=== PATIENT | male | born 1955 | race Caucasian/White ===

== ENCOUNTER 2018-05-30 21:39 | Inpatient (IN) | payer MEDICAID, OTHER ==
[~2018-05-30] VITALS: Ht 170.2 cm; Wt 68.1 kg
--- NOTE | 2018-05-30 21:50 | NUR ---
PT GONZALO FROM [facility] C/O HYPOGLYCEMIA. CURRENT BS 176. PT DENIES SOB, CHEST PAIN, ABDOMINAL PAIN, HEADACHE, DIZZINESS. PT O2 SAT ROOM AIR 85%, PLACED ON 4L O2 NC O2 NOW 94%. PT STATES HE IS NORMALLY ON 2L AT HOME. PT AAOX4. RESPIRATIONS EVEN AND UNLABORED. SKIN INTACT. NO ACUTE DISTRESS NOTED. PLACED ON CONTINUOUS DIP GUIDER STOVES, WILL CONTINUE TO MONITOR
--- NOTE | 2018-05-30 22:25 | NUR ---
MD AT BEDSIDE FOR EVALUATION
--- NOTE | 2018-05-30 22:45 | NUR ---
URINE COLLECTED AND SENT TO LAB
[2018-05-30 22:51] LABS: BASOPHILS % (AUTO) 0.2 % (0.0-2.0); HEMATOCRIT 31 % (39-51); HEMOGLOBIN 10.1 g/dL (13.5-17.5); LYMPHOCYTES # (AUTO) 0.6 /CMM (0.8-4.8); LYMPHOCYTES % (AUTO) 2.5 % (20.0-44.0); MEAN CORPUSCULAR HGB CONC 32 g/dl (31.0-36.0); MEAN CORPUSCULAR VOLUME 89 fL (80-96); MONOCYTES # (AUTO) 1.5 /CMM (0.1-1.30); MONOCYTES % (AUTO) 6.4 % (2.0-12.0); NEUTROPHILS % (AUTO) 90.9 % (43.0-81.0); PLATELET COUNT (AUTO) 405 /CMM (150-450); WHITE BLOOD COUNT (AUTO) 23.2 K/uL (4.3-11.0)
[2018-05-30 22:54] LABS: APPEARANCE,URINE Clear (CLEAR); BILIRUBIN,URINE Negative (NEGATIVE); BLOOD, URINE Negative Ery/uL (NEGATIVE); COLOR,URINE Yellow (YELLOW); KETONES,URINE Negative (NEGATIVE); LEUKOCYTE ESTERASE ,URINE Negative (NEGATIVE); NITRITE, URINE Negative (NEGATIVE); PH,URINE 5.5 (5.0-8.0); PROTEIN,URINE 30 mg/dl (NEGATIVE); UGLUCOSE Negative (NEGATIVE)
[2018-05-30 22:56] LABS: CALCIUM, SERUM 7.9 mg/dL (8.5-10.1); CREATININE 1.7 mg/dL (0.6-1.3); POTASSIUM 4.6 mmol/L (3.5-5.1)
[2018-05-30 23:21] LABS: BACTERIA,URINE Few /HPF (None Seen); SQUAMOUS EPITHELIAL CELL,UR Rare /HPF (None Seen); WBC,URINE 0-2 /HPF (0-3)
[2018-05-30] MEDS ORDERED: PIPERACILLIN /TAZOBACTAM 2.25 G in IV D5W 50 ML IV ONE (23:30)
--- NOTE | 2018-05-30 23:30 | NUR ---
FLOOR ASSOCIATE AT BEDSIDE FOR BLOOD CULTURES
[2018-05-30 23:37] LABS: ALANINE AMINOTRANSFERASE 26 U/L (12-78); ALBUMIN 2.3 g/dL (3.4-5.0); ALKALINE PHOSPHATASE 103 U/L (46-116); ASPARTATE AMINOTRANSFERASE 22 U/L (15-37); BILIRUBIN,DIRECT 0.1 mg/dL (0.0-0.2); BILIRUBIN,TOTAL 0.2 mg/dL (0.2-1.0)
[2018-05-30] MEDS ORDERED: PIPERACILLIN /TAZOBACTAM 2.25 G VIAL IV ONE (23:43)
[2018-05-31] VITALS (7 sets, daily range): BP systolic 111–148; BP diastolic 53–71
[2018-05-31] MEDS ORDERED: VANCOMYCIN 1 GM in IV D5W 250 ML IV ONE ×2
[2018-05-31] MEDS ORDERED: PRED5DRO24 LEFTEYE (00:09)
[2018-05-31] MEDS ORDERED: ASCO500T9 PO (00:09)
[2018-05-31] MEDS ORDERED: LISI-603 PO (00:09)
[2018-05-31] MEDS ORDERED: OLOD4MIS2 IH (00:09)
[2018-05-31] MEDS ORDERED: ACET325T53 PO (00:09)
[2018-05-31] MEDS ORDERED: INSU100V27 SQ (00:09)
[2018-05-31] MEDS ORDERED: AMYL1CAP54 PO (00:09)
[2018-05-31] MEDS ORDERED: INSU100V37 SQ (00:09)
[2018-05-31] MEDS ORDERED: RANI150C4 PO (00:09)
[2018-05-31] MEDS ORDERED: CHOL20004 PO (00:09)
[2018-05-31] MEDS ORDERED: MULT1TAB73 PO (00:09)
[2018-05-31] MEDS ORDERED: GUAI100S9 PO (00:09)
[2018-05-31] MEDS ORDERED: FERR325T23 PO (00:09)
[2018-05-31] MEDS ORDERED: ASPI-1169 PO (00:09)
[2018-05-31] MEDS ORDERED: SERT25TA PO (00:09)
[2018-05-31] MEDS ORDERED: FINA5TAB11 PO (00:09)
[2018-05-31] MEDS ORDERED: IPRA3AMP23 IH (00:09)
[2018-05-31] MEDS ORDERED: CARV25TA2 PO (00:09)
[2018-05-31] MEDS ORDERED: CHLO25TA2 PO (00:09)
[2018-05-31] MEDS ORDERED: ATOR80TA PO (00:09)
[2018-05-31] MEDS ORDERED: [UNRECOGNIZED DRUG - CODE] BC (00:09)
[2018-05-31] MEDS ORDERED: TIOT18CA3 INH (00:09)
[2018-05-31] MEDS ORDERED: NIFE60TA69 PO (00:09)
[2018-05-31] MEDS ORDERED: VANCOMYCIN 1 GM VIAL ONE (00:13)
--- NOTE | 2018-05-31 00:58 | NUR ---
GAVE REPORT TO CATHRYN SALCEDO FOR LARISSA
[2018-05-31] MEDS ORDERED: Z GUARD REMEDY 2 OZ OINT TP PRN (01:30)
[2018-05-31] MEDS ORDERED: ONDANSETRON HCL/PF 4 MG/2 ML VIAL IVP PRN (01:30)
[2018-05-31] MEDS ORDERED: MAG HYDROX/AL HYDROX/SIMETH 30 ML UDC PO PRN (01:30)
[2018-05-31] MEDS ORDERED: ZOLPIDEM TARTRATE 5 MG TABLET PO PRN (01:30)
[2018-05-31] MEDS ORDERED: MAGNESIUM HYDROXIDE 30 ML UDC PO PRN (01:30)
[2018-05-31] MEDS ORDERED: HYDROCODONE/APAP 5/325MG 1 EACH TABLET PO PRN (01:30)
[2018-05-31] MEDS ORDERED: ACETAMINOPHEN 325 MG TABLET PO PRN ×2 (01:30)
--- NOTE | 2018-05-31 02:00 | NUR ---
SITE PROJECT MANAGERSHOP WELDER NOTES RECEIVED FROM ER PER [facility] VIA ACLS PROTOCOL THIS 63 Y.O. MALE FOR [facility],WITH CHIEF COMPLAINTS OF LOW BLOOD SUGAR 45, IMPROVED UPON ARRIVAL TO ER VIA AMBULANCE,WAS GIVEN D10 IV BY PARAMEDICS,A/O X3,NOTED EPISODE OF PRODUCTIVE COUGH.SALINE LOCK LEFT AC INTACT AND PATENT.NOTED FADING BRUISES VIA ABDOMEN FROM SHOTS/INSULIN.SCAR ON HIS BACK AND SKIN DRYNESS ON HIS LEFT HAND.DENIES PAIN AT THE MOMENT.DIMINISHED BREATH SOUND ON BOTH LOWER LUNG FIELD.FALL PRECAUTION OBSERVED.BED ON LOWEST POSITION AND LOCK.CALL LIGHT IN REACH,WILL CONTINUE TO MONITOR STATUS.
--- NOTE | 2018-05-31 02:05 | NUR ---
TRANSFERRED PT PER ACLS PROTOCOL
[2018-05-31] MEDS: GUAIFENESIN 300 MG/15 ML UDC PO PRN ×2 (02:53→10:30)
--- NOTE | 2018-05-31 02:53 | NUR ---
SLAB INSPECTOR NOTES KEEPS ON COUGHING,ROBITUSSIN 100MG/5ML GIVEN
--- NOTE | 2018-05-31 06:07 | NUR ---
YOUTH SERVICES SPECIALIST NOTES SR 69 ON TELE MONITOR.COUGH EPISODE IMPROVED WITH ROBITUSSIN,O2 IN USED AT 4L,O3 SAT 94%.CALL LIGHT IN REACH.NEEDS ATTENDED.WILL ENDORSE TO DAY NURSE FOR LARISSA.
--- NOTE | 2018-05-31 07:42 | NUR ---
SENIOR CONSTRUCTION PROJECT MANAGER OPENING NOTES RECEIVED PT LAYING IN BED WITH HOB ELEVATED. PT IS A/O X4, AFEBRILE. RESPIRATIONS ARE EVEN AND UNLABORED, NOT IN ANY ACUTE DISTRESS NOTED. NO C/O PAIN, SOB, N/V AT THIS TIME. IV SITE TO LAC INTACT, NO INFILTRATION NOTED. DRESSING KEPT CLEAN AND DRY. SAFETY MEASURES ARE IN PLACE. INSTRUCTED PT TO USE CALL LIGHT WHEN ASSISTANCE IS NEEDED, CALL LIGHT IS LEFT WITHIN REACH. WILL MONITOR THROUGHOUT SHIFT FOR CONTINUITY OF CARE.
[2018-05-31] MEDS: FINASTERIDE (5 MG) 5 MG TABLET PO SCH (08:27)
[2018-05-31] MEDS: FERROUS SULFATE (325 MG) 325 MG/TAB TABLET PO SCH (08:27)
[2018-05-31] MEDS: LISINOPRIL (20MG) 20 MG TABLET PO SCH ×2 (08:28→17:31)
[2018-05-31] MEDS: ASPIRIN 81 MG TAB.CHEW PO SCH (08:28)
[2018-05-31] MEDS: ASCORBIC ACID 500 MG TABLET PO SCH (08:28)
[2018-05-31] MEDS: NIFEdipine XL 60 MG TAB PO SCH (08:28)
[2018-05-31] MEDS: CARVEDILOL 12.5 MG TABLET PO SCH ×2 (08:29→17:20)
--- NOTE | 2018-05-31 10:15 | NUR ---
PRECISION FARMING SPECIALIST NOTES-- PT SEEN AND EXAMINED BY DR. HILL.
[2018-05-31] MEDS ORDERED: CEFEPIME 1 GM in IV NS 0.9% 50 ML IV SCH (10:30)
[2018-05-31] MEDS ORDERED: FEE PK DOSING 1 MIN EA MC ONE (10:48)
[2018-05-31] MEDS: CEFEPIME 2 GM in IV D5W 100 ML IV SCH ×2 (11:47→20:31)
--- NOTE | 2018-05-31 13:00 | NUR ---
WINDSHIELD TECHNICIAN NOTES-- PT SEEN AND EXAMINED BY DR. HARRIS.
[2018-05-31] MEDS ORDERED: DEXTROSE 50%-WATER 50 ML DISP.SYRIN IV PRN (16:30)
--- NOTE | 2018-05-31 16:51 | NUR ---
Patient is alert,resides at [facility] [phone].He requires assistance with adl's.He plan to return to SNF once discharge. Addendum: 05/31/18 at 1651 by CARSON CASTRO RN Amended: Links added.
[2018-05-31] MEDS: VANCOMYCIN 1 GM in IV D5W 250 ML IV SCH (17:20)
[2018-05-31] MEDS: BLOOD SUGAR DIAGNOSTIC 1 EACH STRIP IN SCH ×2 (17:21→21:56)
[2018-05-31] MEDS: INSULIN REGULAR, HUMAN 100 UNIT/ML 3 ML VIAL SQ PRN ×2 (17:28→22:08)
--- NOTE | 2018-05-31 17:30 | NUR ---
MS RN NOTES-- BLOOD SUGAR 260, 6 UNITS GIVEN. NO S/SX OF HYPERGLYCEMIA NOTED. WILL CONTINUE TO MONITOR.
--- NOTE | 2018-05-31 18:40 | NUR ---
MS RN CLOSING NOTES ALL DUE MEDS GIVEN, NEEDS MET AND RENDERED. PT IS A/O X3, AFEBRILE. RESPIRATIONS ARE EVEN AND UNLABORED, NOT IN ANY ACUTE DISTRESS NOTED. PT DENIES ANY PAIN, SOB, N/V AT THIS TIME. PT NOTED WITH COUGH DURING SHIFT AND ROBITUSSIN GIVEN, NOTED TO BE EFFECTIVE. IV ACCESS INTACT, NO INFILTRATION NOTED. DRESSING KEPT CLEAN AND DRY. SAFETY MEASURES ARE IN PLACE. REMINDED PT TO USE CALL LIGHT WHEN ASSISTANCE IS NEEDED, CALL LIGHT IS LEFT WITHIN REACH. WILL ENDORSE TO NEXT SHIFT FOR CONTINUITY OF CARE.
[2018-05-31] MEDS: IPRATROPIUM NEB FS 0.5 MG/2.5 ML AMPUL.NEB NEB SCH (19:30)
--- NOTE | 2018-05-31 19:45 | NUR ---
MS RN NOTES RECEIVED OOB, HE'S IN THE RESTROOM,SALINE LOCK LEFT AC INTACT AND PATENT.COUGH IMPROVED,AMBULATORY.CALL LIGHT IN REACH.WILL CONTINUE TO MONITOR STATUS.
--- NOTE | 2018-05-31 20:31 | NUR ---
MS RN NOTES DUE DARLYN CHEW
[2018-05-31] MEDS: ATORVASTATIN 40 MG TABLET PO SCH (21:57)
--- NOTE | 2018-05-31 22:00 | NUR ---
MS RN NOTES URINE FOR ANALYSIS COLLECTED,SENT TO LAB
--- NOTE | 2018-05-31 22:15 | NUR ---
MS RN NOTES ACCU-CHECK BLOOD SUGAR CHECK 159,COVERED WITH HUMULIN R 2 UNITS PER SLIDING SCALE.
--- NOTE | 2018-05-31 22:30 | NUR ---
MS RN NOTES SNACKS PROVIDED AT BEDSIDE
--- NOTE | 2018-06-01 01:00 | NUR ---
MS RN NOTES PATIENT SAYS HE ALREADY HAD LOOSE BOWEL MOVEMENT 3X.CHECKED IF HES GETTING ANY STOOL SOFTENER BUT HES NOT.WILL CHECK AND COLLECT IF HE POO THE 4TH TIME.FOREIGN SERVICE TEACHER BIN PLACE ON TOILET BOWL FOR BOWEL COLLECTION.PATIENT MADE AWARE.
[2018-06-01] MEDS: GUAIFENESIN 300 MG/15 ML UDC PO PRN ×2 (01:03→08:25)
[2018-06-01] MEDS: IPRATROPIUM NEB FS 0.5 MG/2.5 ML AMPUL.NEB NEB SCH ×4 (01:49→20:05)
[2018-06-01] MEDS: BLOOD SUGAR DIAGNOSTIC 1 EACH STRIP IN SCH ×4 (06:03→22:14)
--- NOTE | 2018-06-01 06:21 | NUR ---
MS RN NOTES IN BED SLEEPING,AROUSABLE TO VERBAL STIMULI,LEFT EYE BLIND,SALINE IN PLACE WITH BLOOD STAIN ON SITE.BLOOD SUGAR CHECK 200MG/DL,WILL COVER WITH HUMULIN R 3 UNITS BEFORE BREAKFAST.AMBULATES WITH ASSIST.WILL CONTINUE TO MONITOR STATUS.
[2018-06-01 06:30] LABS: APPEARANCE,URINE CLEAR (CLEAR); BILIRUBIN,URINE NEGATIVE (NEGATIVE); BLOOD, URINE NEGATIVE Ery/uL (NEGATIVE); COLOR,URINE YELLOW (YELLOW); KETONES,URINE NEGATIVE (NEGATIVE); LEUKOCYTE ESTERASE ,URINE NEGATIVE (NEGATIVE); NITRITE, URINE NEGATIVE (NEGATIVE); PH,URINE 6.5 (5.0-8.0); PROTEIN,URINE TRACE mg/dl (NEGATIVE); UGLUCOSE NEGATIVE (NEGATIVE); UROBILINOGEN,URINE 0.2 EU/dL (0.2)
[2018-06-01 07:14] LABS: RBC,URINE 0-2 /HPF (0-2); WBC,URINE NONE SEEN /HPF (0-3)
[2018-06-01 07:15] LABS: BACTERIA,URINE None seen /HPF (None Seen); EOSINOPHIL,URINE None Seen; SQUAMOUS EPITHELIAL CELL,UR Few /HPF (None Seen)
--- NOTE | 2018-06-01 07:36 | NUR ---
MS RN CLOSING NOTES RECEIVED PT LAYING IN BED. PT IS A/O X2-3, AFEBRILE. RESPIRATIONS ARE EVEN AND UNLABORED, NOT IN ANY ACUTE DISTRESS NOTED. PT DENIES ANY PAIN, SOB, N/V AT THIS TIME. IV ACCESS INTACT, NO INFILTRATION NOTED. DRESSING KEPT CLEAN AND DRY. SAFETY MEASURES ARE IN PLACE. REMINDED PT TO USE CALL LIGHT WHEN ASSISTANCE IS NEEDED, CALL LIGHT IS LEFT WITHIN REACH. WILL MONITOR THROUGHOUT SHIFT FOR CONTINUITY OF CARE.
[2018-06-01 07:50] LABS: BASOPHILS # (AUTO) 0.1 /CMM (0.0-0.2); BASOPHILS % (AUTO) 0.3 % (0.0-2.0); HEMATOCRIT 34 % (39-51); HEMOGLOBIN 11.2 g/dL (13.5-17.5); LYMPHOCYTES % (AUTO) 5.5 % (20.0-44.0); MEAN CORPUSCULAR HGB CONC 33 g/dl (31.0-36.0); MEAN CORPUSCULAR VOLUME 89 fL (80-96); MONOCYTES # (AUTO) 1.6 /CMM (0.1-1.30); MONOCYTES % (AUTO) 8.7 % (2.0-12.0); NEUTROPHILS # (AUTO) 15.6 /CMM (1.8-8.9); NEUTROPHILS % (AUTO) 84.5 % (43.0-81.0); PLATELET COUNT (AUTO) 397 /CMM (150-450); WHITE BLOOD COUNT (AUTO) 18.4 K/uL (4.3-11.0)
[2018-06-01 08:00] VITALS: BP_SYST 130; BP_DIAS 57; BP_DIAS 75
[2018-06-01 08:13] LABS: ALBUMIN 2.2 g/dL (3.4-5.0); BILIRUBIN,TOTAL 0.4 mg/dL (0.2-1.0); CALCIUM, SERUM 8.1 mg/dL (8.5-10.1); CREATININE 1.6 mg/dL (0.6-1.3); MAGNESIUM 2.8 mg/dL (1.8-2.4); PHOSPHORUS 3.1 mg/dL (2.5-4.9); POTASSIUM 4.7 mmol/L (3.5-5.1); TOTAL PROTEIN, SERUM 6.9 g/dL (6.4-8.2)
[2018-06-01 08:17] LABS: THYROID STIMULATING HORMONE 0.62 uIU/mL (0.358-3.74)
[2018-06-01] MEDS: FINASTERIDE (5 MG) 5 MG TABLET PO SCH (08:23)
[2018-06-01] MEDS: CARVEDILOL 12.5 MG TABLET PO SCH ×2 (08:24→17:02)
[2018-06-01] MEDS: NIFEdipine XL 60 MG TAB PO SCH (08:24)
[2018-06-01] MEDS: FERROUS SULFATE (325 MG) 325 MG/TAB TABLET PO SCH (08:24)
[2018-06-01] MEDS: ASCORBIC ACID 500 MG TABLET PO SCH (08:25)
[2018-06-01] MEDS: LISINOPRIL (20MG) 20 MG TABLET PO SCH ×2 (08:25→17:02)
[2018-06-01] MEDS: CEFEPIME 2 GM in IV D5W 100 ML IV SCH ×2 (08:26→20:34)
[2018-06-01] MEDS: INSULIN REGULAR, HUMAN 100 UNIT/ML 3 ML VIAL SQ PRN ×4 (08:34→22:17)
--- NOTE | 2018-06-01 08:50 | NUR ---
MS RN NOTES-- PT SEEN AND EXAMINED BY DR. HILL.
[2018-06-01] MEDS: ASPIRIN 81 MG TAB.CHEW PO SCH (09:24)
--- NOTE | 2018-06-01 10:40 | NUR ---
MS RN NOTES-- PT SEEN AND EXAMINED BY DR. LINN.
[2018-06-01] MEDS: VANCOMYCIN 1 GM in IV D5W 250 ML IV SCH (11:28)
[2018-06-01 15:52] VITALS: BP 132/63
--- NOTE | 2018-06-01 19:16 | NUR ---
MS RN CLOSING NOTES ALL DUE MEDS GIVEN, NEEDS MET AND RENDERED. PT IS A/O X2-3, AFEBRILE. RESPIRATIONS ARE EVEN AND UNLABORED, NOT IN ANY ACUTE DISTRESS NOTED. PT DENIES ANY PAIN, SOB, N/V AT THIS TIME. IV ACCESS INTACT, NO INFILTRATION NOTED. DRESSING KEPT CLEAN AND DRY. SAFETY MEASURES ARE IN PLACE. REMINDED PT TO USE CALL LIGHT WHEN ASSISTANCE IS NEEDED, CALL LIGHT IS LEFT WITHIN REACH. ENDORSED TO NEXT SHIFT FOR CONTINUITY OF CARE.
--- NOTE | 2018-06-01 19:35 | NUR ---
MS RN NOTES RECEIVED RESTING COMFORTABLY ON BED,NO SOB,SALINE LOCK LEFT AC WITH BLOOD STAIN NOTED BUT STILL PATENT.O2 IN USED ON AND OFF AT 4LITERS.BED ON LOWEST POSITION AND LOCKED.CALL LIGHT IN REACH,NEEDS ANTICIPATED.
[2018-06-01 20:00] VITALS: BP 113/54
--- NOTE | 2018-06-01 22:00 | NUR ---
MS RN NOTES ACCU-CHECK BLOOD SUGAR CHECK 226,GIVEN 4 UNITS HUMULIN R PER MILD SLIDING SCALE.
[2018-06-01] MEDS: ATORVASTATIN 40 MG TABLET PO SCH (22:14)
[2018-06-02] MEDS: IPRATROPIUM NEB FS 0.5 MG/2.5 ML AMPUL.NEB NEB SCH ×4 (01:36→20:14)
--- NOTE | 2018-06-02 04:03 | NUR ---
MS RN NOTES COUGHING,ROBITUSSIN 100MG/5ML PO GIVEN ORDERED.
[2018-06-02] MEDS: GUAIFENESIN 300 MG/15 ML UDC PO PRN (04:04)
[2018-06-02] MEDS: BLOOD SUGAR DIAGNOSTIC 1 EACH STRIP IN SCH ×4 (06:10→21:44)
[2018-06-02] MEDS: INSULIN REGULAR, HUMAN 100 UNIT/ML 3 ML VIAL SQ PRN ×4 (06:12→21:40)
--- NOTE | 2018-06-02 06:25 | NUR ---
MS RN NOTES COUGH IMPROVED WITH ROBITUSSIN,BLOOD SUGAR CHECK 160,COVERED WITH 2 UNITS HUMULIN PER SLIDING SCALE.IV ABX TOLERATED WELL.CALL LIGHT IN REACH,NEEDS ATTENDED.WILL ENDORSE TO DAY NURSE FOR LARISSA.
[2018-06-02 06:46] LABS: CALCIUM, SERUM 7.8 mg/dL (8.5-10.1); CREATININE 1.5 mg/dL (0.6-1.3)
[2018-06-02] MEDS: VANCOMYCIN 1 GM in IV D5W 250 ML IV SCH (06:47)
--- NOTE | 2018-06-02 06:52 | NUR ---
MS RN NOTES VANCOMYCIN THROUGH 19,DOSE HUNG,INFUSING AT THIS TIME.
--- NOTE | 2018-06-02 07:26 | NUR ---
MS RN OPENING NOTES RECEIVED PT LAYING IN BED. PT IS A/O X2-3, AFEBRILE. RESPIRATIONS ARE EVEN AND UNLABORED, NOT IN ANY ACUTE DISTRESS NOTED. PT DENIES ANY PAIN, SOB, N/V AT THIS TIME. IV ACCESS INTACT, NO INFILTRATION NOTED. DRESSING KEPT CLEAN AND DRY. SAFETY MEASURES ARE IN PLACE. REMINDED PT TO USE CALL LIGHT WHEN ASSISTANCE IS NEEDED, CALL LIGHT IS LEFT WITHIN REACH. WILL MONITOR THROUGHOUT SHIFT FOR CONTINUITY OF CARE.
[2018-06-02 08:00] VITALS: BP 157/74
[2018-06-02] MEDS: ASCORBIC ACID 500 MG TABLET PO SCH (08:17)
[2018-06-02] MEDS: FINASTERIDE (5 MG) 5 MG TABLET PO SCH (08:17)
[2018-06-02] MEDS: FERROUS SULFATE (325 MG) 325 MG/TAB TABLET PO SCH (08:17)
[2018-06-02] MEDS: CEFEPIME 2 GM in IV D5W 100 ML IV SCH ×2 (08:17→20:52)
[2018-06-02] MEDS: ASPIRIN 81 MG TAB.CHEW PO SCH (08:18)
[2018-06-02] MEDS: NIFEdipine XL 60 MG TAB PO SCH (08:18)
[2018-06-02] MEDS: LISINOPRIL (20MG) 20 MG TABLET PO SCH ×2 (08:18→16:42)
[2018-06-02] MEDS: CARVEDILOL 12.5 MG TABLET PO SCH ×2 (08:18→17:04)
--- NOTE | 2018-06-02 09:11 | NUR ---
MS RN NOTES-- PT SEEN AND EXAMINED BY DR. HILL.
[2018-06-02] MEDS: LACTOBACILLUS RHAMNOSUS GG 1 EACH CAP.SPRINK PO SCH ×2 (09:28→16:42)
--- NOTE | 2018-06-02 14:21 | NUR ---
MS RN NOTES-- REPORT GIVEN TO DEBORAH AND ANJELICA FOR CONTINUITY OF CARE. PT IS A/O X2-3, AFEBRILE. RESPIRATIONS ARE EVEN AND UNLABORED, NOT IN ANY ACUTE DISTRESS NOTED, TOLERATING O2 @2L/MIN VIA NC. RECEIVED SCHEDULE BREATHING TXS. DENIES SOB, N/V, PAIN. IV SITE INTACT, NO INFILTRATION NOTED. DRESSING KEPT CLEAN AND DRY. SAFETY MEASURES ARE IN PLACE. BEDSIDE ENDORSEMENT GIVEN.
--- NOTE | 2018-06-02 14:28 | NUR ---
MS RN NOTES RECEIVED PT RESTING IN BED, SLEEPING. EASILY AWAKEN. A/O X2-3. ON O2 AT 2LPM, WITH NO ACUTE RESPIRATORY DISTRESS NOTED. DENIES PAIN. PIV LAC G20, FLUSHED WITH NS INTACT AND OPERATIONAL. KEPT BED IN LOWEST, LOCKED POSITION WITH SR X2. WILL CONTINUE TO MONITOR.
[2018-06-02 16:00] VITALS: BP 114/54
--- NOTE | 2018-06-02 18:47 | NUR ---
MS RN CLOSING NOTES PT RESTING IN BED. A/O X4. ON O2 AT 2LPM, WITHOUT SOB, O2 SATURATION OF 98-100%. DENIES PAIN AT THIS MOMENT. PIV TO LAC G20 SL, FLUSHED WITH NS INTACT AND OPERATIONAL. ALL NEEDS AND CARE PROVIDED. PT ABLE TO MAKE NEEDS KNOWN. FLUID AND CALL LIGHT KEPT WITHIN REACH. PT'S BED IN LOWEST, LOCKED POSITION WITH SR X2. WILL ENDORSE TO INCOMING PROCESS IMPROVEMENT SPECIALIST NURSE FOR LARISSA.
--- NOTE | 2018-06-02 19:40 | NUR ---
MS RN NOTES RECEIVED ON BED SLEEPING,AROUSABLE TO VERBAL STIMULI,BREATHING NON LABORED,COUGH EPISODE IMPROVED.SALINE LOCK LEFT AC INTACT AND PATENT.CALL LIGHT IN REACH,NEEDS ANTICIPATED.
[2018-06-02 20:00] VITALS: BP 112/56
[2018-06-02 20:13] VITALS: BP 112/56
[2018-06-02] MEDS: ATORVASTATIN 40 MG TABLET PO SCH (20:51)
--- NOTE | 2018-06-02 22:00 | NUR ---
MS RN NOTES ACCU-CHECK BLOOD SUGAR CHECK 408,RECHECK WAS 334,HUMULIN R 8 UNITS ADMINISTERED PER SLIDING SCALE.
--- NOTE | 2018-06-03 01:00 | NUR ---
MS RN NOTES SLEEPING,KEPT WARM AND COMFORTABLE.
[2018-06-03] MEDS: IPRATROPIUM NEB FS 0.5 MG/2.5 ML AMPUL.NEB NEB SCH ×4 (01:32→19:57)
[2018-06-03] MEDS: VANCOMYCIN 1 GM in IV D5W 250 ML IV SCH (05:44)
[2018-06-03] MEDS: BLOOD SUGAR DIAGNOSTIC 1 EACH STRIP IN SCH ×4 (05:44→21:25)
[2018-06-03] MEDS: INSULIN REGULAR, HUMAN 100 UNIT/ML 3 ML VIAL SQ PRN ×4 (05:55→21:28)
[2018-06-03] MEDS ORDERED: VANCOMYCIN 1 GM in IV D5W 250 ML IV SCH (06:00)
--- NOTE | 2018-06-03 06:00 | NUR ---
MS RN NOTES ACCU-CHECK BLOOD SUGAR CHECK 256,COVERED WITH HUMULIN R 6 UNITS PER SLIDING SCALE.COFFEE PROVIDED PER PATIENT REQUEST.
--- NOTE | 2018-06-03 06:19 | NUR ---
MS RN NOTES SLEPT WELL AT NIGHT,IV ABX TOLERATED WELL.NO N/V/D NOTED.POSSIBLE D/C BACK TO [facility].WILL ENDORSE TO DAY NURSE FOR LARISSA.
[2018-06-03 06:58] LABS: CALCIUM, SERUM 7.7 mg/dL (8.5-10.1); CREATININE 1.8 mg/dL (0.6-1.3); POTASSIUM 5.3 mmol/L (3.5-5.1)
[2018-06-03 07:05] LABS: BASOPHILS # (AUTO) 0.1 /CMM (0.0-0.2); BASOPHILS % (AUTO) 0.6 % (0.0-2.0); HEMATOCRIT 31 % (39-51); LYMPHOCYTES # (AUTO) 1.6 /CMM (0.8-4.8); LYMPHOCYTES % (AUTO) 8.4 % (20.0-44.0); MEAN CORPUSCULAR HGB CONC 32 g/dl (31.0-36.0); MEAN CORPUSCULAR VOLUME 89 fL (80-96); MONOCYTES # (AUTO) 1.4 /CMM (0.1-1.30); MONOCYTES % (AUTO) 7.4 % (2.0-12.0); NEUTROPHILS # (AUTO) 15.2 /CMM (1.8-8.9); NEUTROPHILS % (AUTO) 81.6 % (43.0-81.0); PLATELET COUNT (AUTO) 379 /CMM (150-450); RED BLOOD CELL COUNT(AUTO) 3.47 MIL/uL (4.5-6.0); WHITE BLOOD COUNT (AUTO) 18.6 K/uL (4.3-11.0)
[2018-06-03 08:00] VITALS: BP 144/62
[2018-06-03] MEDS: ASPIRIN 81 MG TAB.CHEW PO SCH (08:26)
[2018-06-03] MEDS: FINASTERIDE (5 MG) 5 MG TABLET PO SCH (08:26)
[2018-06-03] MEDS: FERROUS SULFATE (325 MG) 325 MG/TAB TABLET PO SCH (08:26)
[2018-06-03] MEDS: LISINOPRIL (20MG) 20 MG TABLET PO SCH ×2 (08:26→17:21)
[2018-06-03] MEDS: LACTOBACILLUS RHAMNOSUS GG 1 EACH CAP.SPRINK PO SCH ×2 (08:26→17:18)
[2018-06-03] MEDS: NIFEdipine XL 60 MG TAB PO SCH (08:27)
[2018-06-03] MEDS: ASCORBIC ACID 500 MG TABLET PO SCH (08:27)
[2018-06-03] MEDS: CARVEDILOL 12.5 MG TABLET PO SCH ×2 (08:27→17:17)
[2018-06-03] MEDS ORDERED: IV NS 0.9% 1,000 ML IV ONE (09:00)
[2018-06-03] MEDS: CEFEPIME 2 GM in IV D5W 100 ML IV SCH ×2 (09:06→21:12)
--- NOTE | 2018-06-03 12:12 | NUR ---
RECHECKED PATIENT BS WITH DIFFERENT GLUCOMETER . BS LEVEL IS 375 , 10 UNITS REGULAR INSULIN GIVEN PER SLIDING SCALE
[2018-06-03 16:00] VITALS: BP 120/60
--- NOTE | 2018-06-03 17:00 | NUR ---
LEAKING IV LINE DISCONTINUED. NEW IV ASSESS TO THE RIGHT AC #22
--- NOTE | 2018-06-03 18:56 | NUR ---
PT IN BED SLEEPING,AROUSABLE TO VERBAL STIMULI,BREATHING UNLABORED,RIGHT AC G22 INTACT AND PATENT.CALL LIGHT IN REACH,NEEDS ANTICIPATED.WILL ENDORSE TO NEXT SHIFT
--- NOTE | 2018-06-03 19:34 | NUR ---
RN MS OPENING NOTES RECEIVED PATIENT IN BED AWAKE, ALERT AND ORIENTED X3, VERBALLY RESPONSIVE. ABLE TO MAKE NEEDS KNOWN. BREATHING EVEN AND UNLABORED. NO SOB NOTED. TOLERATING ROOM AIR. NO COMPLAINTS OF PAIN OR DISCOMFORT. NO FACIAL GRIMACING. IV ON RIGHT AC INTACT AND PATENT. SKIN DRY AND WARM TO TOUCH. AFEBRILE. ALL OTHER NEEDS ATTENDED TO. SAFETY MEASURES IN PLACE. CALL LIGHT WITHIN REACH. WILL CONTINUE TO MONITOR.
[2018-06-03 20:00] VITALS: BP 122/52
[2018-06-03] MEDS: ATORVASTATIN 40 MG TABLET PO SCH (21:17)
--- NOTE | 2018-06-03 23:58 | NUR ---
RN MS NOTES PATIENT REFUSING TO HAVE IV FLUIDS AT THE MOMENT DUE TO CONSISTENTLY GOING TO THE BATHROOM. EXPLAINED RISKS AND BENEFITS BUT STILL REFUSING.WILL CONTINUE TO MONITOR
--- NOTE | 2018-06-04 01:20 | NUR ---
RN MS NOTES LARISSA TRANSFERRED TO DENISSE HARRIS. PATIENT IN STABLE CONDITION.
[2018-06-04] MEDS: IPRATROPIUM NEB FS 0.5 MG/2.5 ML AMPUL.NEB NEB SCH ×4 (01:42→19:27)
[2018-06-04] MEDS: VANCOMYCIN 1 GM in IV D5W 250 ML IV SCH (05:42)
[2018-06-04] MEDS: INSULIN REGULAR, HUMAN 100 UNIT/ML 3 ML VIAL SQ PRN ×4 (06:05→21:59)
[2018-06-04 06:35] LABS: BASOPHILS # (AUTO) 0.1 /CMM (0.0-0.2); BASOPHILS % (AUTO) 0.5 % (0.0-2.0); EOSINOPHILS % (AUTO) 1.7 % (0.0-6.0); HEMATOCRIT 30 % (39-51); LYMPHOCYTES # (AUTO) 1.5 /CMM (0.8-4.8); LYMPHOCYTES % (AUTO) 8.6 % (20.0-44.0); MEAN CORPUSCULAR HGB CONC 33 g/dl (31.0-36.0); MEAN CORPUSCULAR VOLUME 89 fL (80-96); MONOCYTES # (AUTO) 1.2 /CMM (0.1-1.30); NEUTROPHILS # (AUTO) 14.2 /CMM (1.8-8.9); NEUTROPHILS % (AUTO) 82.2 % (43.0-81.0); PLATELET COUNT (AUTO) 350 /CMM (150-450); RED BLOOD CELL COUNT(AUTO) 3.39 MIL/uL (4.5-6.0); WHITE BLOOD COUNT (AUTO) 17.3 K/uL (4.3-11.0)
[2018-06-04 06:52] LABS: CALCIUM, SERUM 7.9 mg/dL (8.5-10.1); CREATININE 1.5 mg/dL (0.6-1.3); POTASSIUM 5.5 mmol/L (3.5-5.1)
--- NOTE | 2018-06-04 06:55 | NUR ---
CHEMICAL LAB TECHNICIAN NOTES PATIENT ASLEEP IN BED WITH NO DISTRESS NOTED. CALL LIGHT WITHIN REACH. PERIPHERAL LINE INTACT AND PATENT. NO FURTHER C/O PAIN OR DISCOMFORT. ALL DUE MEDS GIVEN ORDERED WITH NO ASE NOTED. BED IN LOW LOCK SETTING. ROOM FREE OF CLUTTER AND ALL BELONGINGS KEPT NEAR BEDSIDE. WILL ENDORSE TO ONCOMING SHIFT. Addendum: 06/04/18 at 0656 by DEEPAK DICKERSON RN MS SALCEDO NOTES
[2018-06-04 07:12] LABS: *SPE A/G RATIO 0.7 (0.7-1.7); *SPE ALBUMIN 2.6 g/dL (2.9-4.4); *SPE ALPHA-1-GLOBULIN 0.3 g/dL (0.0-0.4); *SPE ALPHA-2-GLOBULIN 0.9 g/dL (0.4-1.0); *SPE GLOBULIN, TOTAL 3.6 g/dL (2.2-3.9); *SPE M-SPIKE Not Observed g/dL (Not Observed); *SPEGAMMA GLOBULIN 1.4 g/dL (0.4-1.8)
--- NOTE | 2018-06-04 07:47 | NUR ---
MS/RN OPENING NOTE PATIENT IN BED IN STABLE CONDITION. A/O X 3. NO SIGNS OF ACUTE DISTRESS. NO COMPLAIN OF PAIN OR DISCOMFORT. ALL NEEDS ATTENDED TO AT THIS TIME. CALL LIGHT WITHIN REACH. WILL CONTINUE TO MONITOR TO ENSURE SAFETY.
[2018-06-04 08:00] VITALS: BP 137/69
[2018-06-04] MEDS: BLOOD SUGAR DIAGNOSTIC 1 EACH STRIP IN SCH ×4 (08:20→21:57)
[2018-06-04] MEDS: CEFEPIME 2 GM in IV D5W 100 ML IV SCH ×2 (08:20→21:49)
[2018-06-04] MEDS: LISINOPRIL (20MG) 20 MG TABLET PO SCH (08:21)
[2018-06-04] MEDS: ASPIRIN 81 MG TAB.CHEW PO SCH (08:21)
[2018-06-04] MEDS: CARVEDILOL 12.5 MG TABLET PO SCH ×2 (08:21→16:45)
[2018-06-04] MEDS: NIFEdipine XL 60 MG TAB PO SCH (08:21)
[2018-06-04] MEDS: FERROUS SULFATE (325 MG) 325 MG/TAB TABLET PO SCH (08:21)
[2018-06-04] MEDS: FINASTERIDE (5 MG) 5 MG TABLET PO SCH (08:21)
[2018-06-04] MEDS: ASCORBIC ACID 500 MG TABLET PO SCH (08:22)
[2018-06-04] MEDS: LACTOBACILLUS RHAMNOSUS GG 1 EACH CAP.SPRINK PO SCH ×2 (08:22→16:45)
--- NOTE | 2018-06-04 08:48 | NUR ---
Rt not: Patient busy in the restroom with NEWS AGENT. No respiratory treatment given. Will follow up later.
--- NOTE | 2018-06-04 10:00 | NUR ---
MS/RN SEEN BY DR HILL WITH NO ORDERS AT THIS TIME. PER DR HILL POSSIBLE DC TOMORROW ONCE PATIENT'S POTASSIUM LEVEL GOES DOWN. PATIENT MADE AWARE.
[2018-06-04 14:11] LABS: PTH, INTACT 53 pg/mL (15-65)
[2018-06-04 16:00] VITALS: BP 138/70
--- NOTE | 2018-06-04 18:23 | NUR ---
MS/RN CLOSING NOTE PATIENT IN BED IN STABLE CONDITION. A/O X 3. NO SIGNS OF ACUTE DISTRESS. NO COMPLAIN OF PAIN OR DISCOMFORT. ALL NEEDS ATTENDED TO. CALL LIGHT WITHIN REACH. WILL ENDORSE TO NEXT SHIFT FOR CONTINUITY OF CARE.
[2018-06-04 20:00] VITALS: BP 128/64
--- NOTE | 2018-06-04 20:21 | NUR ---
RN MS OPENING NOTES RECEIVED PT IN BED, SLEEPING EASILY AROUSED TO NAME CALL. BREATHING EVEN AND UNLABORED ON ROOM AIR, NO COUGH OR CONGESTION AT THE MOMENT. IN NO APPARENT PAIN OR DISCOMFORT AT THIS TIMED, IV ACCESS ON THE R AC 22G PATENT AND FLUSHING. BED IN LOWEST LOCKED POSITION, CALL LIGHT WITHIN REACH AT ALL TIMES, WILL CONTINUE TO MONITOR.
[2018-06-04] MEDS: ATORVASTATIN 40 MG TABLET PO SCH (21:57)
[2018-06-05] MEDS: IPRATROPIUM NEB FS 0.5 MG/2.5 ML AMPUL.NEB NEB SCH ×4 (01:09→19:15)
[2018-06-05] MEDS: VANCOMYCIN 1 GM in IV D5W 250 ML IV SCH (06:00)
[2018-06-05] MEDS: BLOOD SUGAR DIAGNOSTIC 1 EACH STRIP IN SCH ×4 (06:24→22:00)
[2018-06-05] MEDS: INSULIN REGULAR, HUMAN 100 UNIT/ML 3 ML VIAL SQ PRN ×4 (06:26→22:02)
[2018-06-05 06:40] LABS: CALCIUM, SERUM 8.4 mg/dL (8.5-10.1); CREATININE 1.3 mg/dL (0.6-1.3); POTASSIUM 5.7 mmol/L (3.5-5.1)
--- NOTE | 2018-06-05 06:45 | NUR ---
RN MS CLOSING NOTES PT REMAINS IN BED, SLEEPING EASILY AROUSED TO NAME CALL. BREATHING EVEN AND UNLABORED ON ROOM AIR, NO COUGH OR CONGESTION AT THE MOMENT. BG OF 175 3 UNITS OF INSULIN GIVEN. IN NO APPARENT PAIN OR DISCOMFORT AT THIS TIMED, IV ACCESS ON THE R AC 22G PATENT AND FLUSHING. VANCO DOSE FOR AM NOT GIVEN, AWAITING VANCO TROUGH RESULTS. BED IN LOWEST LOCKED POSITION, CALL LIGHT WITHIN REACH AT ALL TIMES, WILL ENDORSE TO DAY NURSE.
--- NOTE | 2018-06-05 07:04 | NUR ---
6 AM VANCO DOSE HELD, VANCO TROUGH 22.
[2018-06-05 08:00] VITALS: BP 135/73
--- NOTE | 2018-06-05 08:00 | NUR ---
MS/RN - Assessment Patient alert and oriented, no complaints overnight, denies pain, no episodes of hypoglycemia, on oxygen at 2lpm via NC. Saline lock on the RAC is patent, intact, with no signs of complications. Skin is intact, pt is independent with bed mobility. All needs attended. Plan of care discussed with patient and in agreement. Will continue with current medical management.
[2018-06-05] MEDS: FERROUS SULFATE (325 MG) 325 MG/TAB TABLET PO SCH (08:22)
[2018-06-05] MEDS: FINASTERIDE (5 MG) 5 MG TABLET PO SCH (08:22)
[2018-06-05] MEDS: LACTOBACILLUS RHAMNOSUS GG 1 EACH CAP.SPRINK PO SCH ×2 (08:23→16:52)
[2018-06-05] MEDS: NIFEdipine XL 60 MG TAB PO SCH (08:23)
[2018-06-05] MEDS: ASPIRIN 81 MG TAB.CHEW PO SCH (08:24)
[2018-06-05] MEDS: ASCORBIC ACID 500 MG TABLET PO SCH (08:24)
[2018-06-05] MEDS: CARVEDILOL 12.5 MG TABLET PO SCH ×2 (08:24→17:44)
[2018-06-05] MEDS: CEFEPIME 2 GM in IV D5W 100 ML IV SCH ×2 (08:30→20:08)
[2018-06-05] MEDS ORDERED: FUROSEMIDE 40 MG/4 ML VIAL IV ONE (12:30)
[2018-06-05] MEDS ORDERED: SODIUM POLYSTYRENE SULFONATE 15 G/60 ML BOTTLE PO ONE (13:00)
--- NOTE | 2018-06-05 15:15 | NUR ---
MS/RN - Notes Potassium level post Kayexalate was 5.1, okay to discharge per Dr. Currie. Will obtain discharge orders from Dr. Grant. manufacturing production manager and charge nurse made aware.
[2018-06-05 16:00] VITALS: BP 123/59
--- NOTE | 2018-06-05 16:00 | NUR ---
MS/RN - Notes Discharge plan for today was cancelled due to facility unable to take the patient back because of a rash outbreak at [facility]. Patient made aware.
--- NOTE | 2018-06-05 17:28 | NUR ---
MS/RN - End of shift summary No new events seen, denies pain, afebrile, stable on room air, not in any form of distress. Vancomycin trough drawn at 1700 result still pending. All needs attended. Fall precautions maintained. Will continue with current medical management.
[2018-06-05] MEDS ORDERED: VANCOMYCIN 1 GM in IV D5W 250 ML IV SCH (18:00)
--- NOTE | 2018-06-05 19:36 | NUR ---
RN MS OPENING NOTES RECEIVED PT IN BED, SLEEPING EASILY AROUSED TO NAME CALL. BREATHING EVEN AND UNLABORED ON ROOM AIR, NO COUGH OR CONGESTION AT THE MOMENT BREATHING TREATMENT IN PROCESS AND TOLERATING. IN NO APPARENT PAIN OR DISCOMFORT AT THIS TIMED, IV ACCESS ON THE R FA 20G PATENT AND FLUSHING. BED IN LOWEST LOCKED POSITION, CALL LIGHT WITHIN REACH AT ALL TIMES, WILL CONTINUE TO MONITOR.
[2018-06-05 20:00] VITALS: BP 135/69
[2018-06-05] MEDS: ATORVASTATIN 40 MG TABLET PO SCH (22:03)
[2018-06-06] MEDS: IPRATROPIUM NEB FS 0.5 MG/2.5 ML AMPUL.NEB NEB SCH ×4 (01:30→18:58)
[2018-06-06 06:17] LABS: BASOPHILS # (AUTO) 0.1 /CMM (0.0-0.2); BASOPHILS % (AUTO) 0.8 % (0.0-2.0); EOSINOPHILS % (AUTO) 1.5 % (0.0-6.0); HEMATOCRIT 31 % (39-51); LYMPHOCYTES # (AUTO) 1.6 /CMM (0.8-4.8); LYMPHOCYTES % (AUTO) 9.8 % (20.0-44.0); MEAN CORPUSCULAR HGB CONC 33 g/dl (31.0-36.0); MEAN CORPUSCULAR VOLUME 89 fL (80-96); MONOCYTES # (AUTO) 1.3 /CMM (0.1-1.30); MONOCYTES % (AUTO) 7.6 % (2.0-12.0); NEUTROPHILS # (AUTO) 13.4 /CMM (1.8-8.9); NEUTROPHILS % (AUTO) 80.3 % (43.0-81.0); PLATELET COUNT (AUTO) 322 /CMM (150-450); RED BLOOD CELL COUNT(AUTO) 3.41 MIL/uL (4.5-6.0); WHITE BLOOD COUNT (AUTO) 16.7 K/uL (4.3-11.0)
[2018-06-06 06:18] LABS: CALCIUM, SERUM 7.7 mg/dL (8.5-10.1); CREATININE 1.4 mg/dL (0.6-1.3); POTASSIUM 5.1 mmol/L (3.5-5.1)
[2018-06-06] MEDS: BLOOD SUGAR DIAGNOSTIC 1 EACH STRIP IN SCH ×3 (06:33→17:40)
[2018-06-06] MEDS: INSULIN REGULAR, HUMAN 100 UNIT/ML 3 ML VIAL SQ PRN ×3 (06:34→16:45)
--- NOTE | 2018-06-06 06:49 | NUR ---
RN MS CLOSING NOTES PT REMAINS IN BED, SLEEPING EASILY AROUSED TO NAME CALL. BREATHING EVEN AND UNLABORED ON ROOM AIR, NO COUGH OR CONGESTION AT THE MOMENT. BG OF 357, 10 UNITS OF INSULIN GIVEN. IN NO APPARENT PAIN OR DISCOMFORT AT THIS TIMED, IV ACCESS ON THE L FA 20G PATENT AND FLUSHING. BED IN LOWEST LOCKED POSITION, CALL LIGHT WITHIN REACH AT ALL TIMES, WILL ENDORSE TO DAY NURSE.
--- NOTE | 2018-06-06 07:44 | NUR ---
MS/RN - Assessment Patient alert and oriented, no complaints overnight, denies pain, states feeling better, stable on room air. Saline lock on the RFA is patent, intact, with no signs of complications. Labs reviewed noted with improvement in potassium level, WBC downtrending, on Vanco and Maxipime for pneumonia. Plan of care discussed with patient and family. Will continue with current medical management.
[2018-06-06 08:00] VITALS: BP 126/65
[2018-06-06] MEDS: ASPIRIN 81 MG TAB.CHEW PO SCH (08:07)
[2018-06-06] MEDS: LACTOBACILLUS RHAMNOSUS GG 1 EACH CAP.SPRINK PO SCH ×2 (08:07→17:17)
[2018-06-06] MEDS: FINASTERIDE (5 MG) 5 MG TABLET PO SCH (08:07)
[2018-06-06] MEDS: FERROUS SULFATE (325 MG) 325 MG/TAB TABLET PO SCH (08:07)
[2018-06-06] MEDS: CARVEDILOL 12.5 MG TABLET PO SCH ×2 (08:08→17:18)
[2018-06-06] MEDS: ASCORBIC ACID 500 MG TABLET PO SCH (08:08)
[2018-06-06] MEDS: NIFEdipine XL 60 MG TAB PO SCH (08:08)
[2018-06-06] MEDS: CEFEPIME 2 GM in IV D5W 100 ML IV SCH (08:10)
[2018-06-06 16:00] VITALS: BP 128/64
--- NOTE | 2018-06-06 18:15 | NUR ---
MS/RN - End of shift summary Patient denies pain, not in any form of distress, stable for discharge tonight to [facility] [phone]. All discharge papers done and photos taken on skin breakdown. Ambulance ETA around 20:00-20:30. Will endorse to night nurse accordingly.
[2018-06-06] MEDS ORDERED: CEFE1PIG3 IV (18:35)
[2018-06-06] MEDS ORDERED: RXVAN XX (18:35)
[2018-06-06] MEDS ORDERED: LISI-603 PO (18:35)
[2018-06-06 20:18] VITALS: BP 141/69
--- NOTE | 2018-06-06 20:30 | NUR ---
RN NOTES REPORT FOR DISCHARGE WAS GIVEN TO DENISSE SANCHEZ WELDING PANTOGRAPH MACHINE OPERATOR FROM [facility]. PATIENT WAS DISCHARGED TO [facility]. PATIENT WAS PICKED UP AROUND 2019 VIA AMBULIFE. NO FORM OF DISTRESS. VITAL SIGNS ARE STABLE PRIOR TO DISCHARGE. SKIN INTACT. DENIES PAIN. ALL NEEDS WERE MET.
== END 2018-06-06 20:30 | DRG 139 ==
LOC: ER 21:44 → TELE 05-31 01:23 → MED 05-31 14:14
PROVIDERS: ADMIT Family Medicine; ATTEND Family Medicine
DX: J15.9 Unspecified bacterial pneumonia (principal); N17.0 Acute kidney failure with tubular necrosis; I50.23 Acute on chronic systolic (congestive) heart failure; E43 Unspecified severe protein-calorie malnutrition; E11.22 Type 2 diabetes mellitus with diabetic chronic kidney disease; K86.1 Other chronic pancreatitis; E87.1 Hypo-osmolality and hyponatremia; E11.649 Type 2 diabetes mellitus with hypoglycemia without coma; J44.0 Chronic obstructive pulmonary disease with (acute) lower respiratory infection; I13.0 Hypertensive heart and chronic kidney disease with heart failure and stage 1 through stage 4 chronic kidney disease, or unspecified chronic kidney disease; N18.9 Chronic kidney disease, unspecified; I25.10 Atherosclerotic heart disease of native coronary artery without angina pectoris; F32.9 Major depressive disorder, single episode, unspecified; E87.5 Hyperkalemia; F17.200 Nicotine dependence, unspecified, uncomplicated; I25.2 Old myocardial infarction; Z95.810 Presence of automatic (implantable) cardiac defibrillator; I25.5 Ischemic cardiomyopathy
CPT/HCPCS: 36415; 71045-TC; 76770-TC; 80048-TC; 80053-TC; 80061-TC; 80076-TC; 80202-TC; 81000-TC; 82550-TC; 82962-TC; 83540-TC; 83605-TC; 83735-TC; 83880; 83970; 84100-TC; 84132-TC; 84155; 84165; 84443-TC; 84484-TC; 85025-TC; 85730-TC; 87040-TC; 87081-TC; 87086-TC; 93307-TC; 94799-TC; A4216; G0378; J0692; J1815; J1940; J2543; J3370; J7030; J7050; J7060